=== PATIENT | male | born 1950 | race Caucasian/White ===

== ENCOUNTER 2016-12-24 13:39 | Emergency (ER) | payer SELFPAY ==
--- NOTE | 2016-12-24 13:46 | EDM.PDOC ---
ED HPI GENERAL MEDICAL PROBLEM - General Time Seen by Provider: 12/24/16 13:43 - History of Present Illness INITIAL COMMENTS - FREE TEXT/NARRATIVE: Patient refused to be seen. Patient states "I only want to be seen by a real doctor." Patient not seen by provider per patient request ED ROS GENERAL - Review of Systems Review Of Systems: See Below ED EXAM, GENERAL - Physical Exam Exam: See Below Departure - Departure Time of Disposition: 13:44 Disposition: Left Without Being Seen 07 Clinical Impression: Refused assessment of physical health - Discharge Information Forms: Refusal Medical Screening, Refusal of Exam and Treatment
== END 2016-12-24 13:40 | disposition left against medical advice (07) ==
LOC: VM.ED 13:39
DX: Z53.21 Procedure and treatment not carried out due to patient leaving prior to being seen by health care provider (principal)